=== PATIENT | male | born 1990 | race Caucasian/White ===

== ENCOUNTER 2021-01-07 10:58 | Day surgery (SDC) | payer BC, OTHER ==
[~2021-01-07 10:58] MED LIST: Lactated Ringers 1,000 ML IV SCH; Lidocaine 1%/Sod Bicarbonate in NS 8.4% 1 ML Syringe IDERM PRN; Sodium Chloride 0.9% 10 ML Syringe FLUSH PRN
--- NOTE | 2021-01-07 12:14 | PCM.PREANE ---
Preanesthetic Assessment - Procedure Proposed Procedure: Anal exam fistulectomy - Anesthesia/Transfusion/Family Hx Anesthesia History: Prior Anesthesia Without Reaction Family History of Anesthesia Reaction: No - Review of Systems General: No Symptoms Pulmonary: No Symptoms Cardiovascular: No Symptoms Gastrointestinal: Other (GERD, controlled. ) Neurological: No Symptoms Other: Reports: None (Obesity BMI 40), Sinus Problem (Sinus Surgery), Depression - Physical Assessment NPO Status Date: 01/07/21 NPO Status Time: 03:00 Vital Signs: Last Vital Signs Temp 36.4 C 01/07/21 11:31 Pulse 74 01/07/21 11:31 Resp 18 01/07/21 11:31 BP 115/70 01/07/21 11:31 Pulse Ox 96 01/07/21 11:31 Height: 1.83 m Weight: 136.4 kg ASA Class: 3 Mental Status: Alert & Oriented x3 Airway Class: Mallampati = 3 Dentition: Reports: Normal Dentition Thyro-Mental Finger Breadths: 3 Mouth Opening Finger Breadths: 3 ROM/Head Extension: Full Lungs: Clear to Auscultation, Normal Respiratory Effort Cardiovascular: Regular Rate, Regular Rhythm - Allergies Allergies/Adverse Reactions: Allergies Allergy/AdvReac Type Severity Reaction Status Date / Time No Known Allergies Allergy Verified 01/07/21 11:29 - Acknowledgements Anesthesia Type Planned: General Anesthesia Pt an Appropriate Candidate for the Planned Anesthesia: Yes Alternatives and Risks of Anesthesia Discussed w Pt/Guardian: Yes Pt/Guardian Understands and Agrees with Anesthesia Plan: Yes PreAnesthesia Questionnaire HEENT History: Reports: Sinusitis Gastrointestinal History: Reports: Colon Polyp, Other (See Below) Other Gastrointestinal History: colon polyp biopsy, anal fissures Psychiatric History: Reports: Depression - Infectious Disease History Infectious Disease History: Reports: None - Past Surgical History HEENT Surgical History: Reports: LASIK, Naso-Sinus Surgery, Visual GI Surgical History: Reports: Colonoscopy, EGD Musculoskeletal Surgical History: Reports: Arthroscopic Procedure Other Musculoskeletal Surgeries/Procedures:: right knee arthoscopy - SUBSTANCE USE Tobacco Use Status *Q: Current Every Day Tobacco User Tobacco Use Within Last Twelve Months: Snuff/Dip Recreational Drug Use History: No - HOME MEDS Home Medications: Home Meds FLUoxetine HCl [Prozac] 20 mg PO DAILY 01/07/21 [History] Lidocaine [Topicaine] 1 dose TOP ASDIRECTED PRN 01/07/21 [History] Mupirocin Oint [Bactroban Oint] 1 dose TOP ASDIRECTED PRN 01/07/21 [History] Nifedipine, Micronized [Nifedipine Micronized] 1 dose TOP ASDIRECTED 01/07/21 [History] OXcarbazepine [Trileptal] 150 mg PO BID 01/07/21 [History] buPROPion HCL [Wellbutrin Xl] 150 mg PO DAILY 01/07/21 [History] buPROPion HCL [Wellbutrin Xl] 300 mg PO DAILY 01/07/21 [History] - CURRENT (IN HOUSE) MEDS Current Meds: Current Medications Lactated Ringer's (Ringers, Lactated) 1,000 mls @ 125 mls/hr IV ASDIRECTED ALYSSA Stop: 01/07/21 23:00 Last Admin: 01/07/21 11:28 Dose: 125 mls/hr Documented by: Lidocaine/Sodium Bicarbonate (Buffered Lidocaine 1% In Ns 8.4%) 0.25 ml IDERM ONETIME PRN PRN Reason: Prior to IV Start Stop: 01/07/21 18:00 Last Admin: 01/07/21 11:28 Dose: 0.25 ml Documented by: Sodium Chloride (Saline Flush) 10 ml FLUSH ASDIRECTED PRN PRN Reason: Keep Vein Open Stop: 01/07/21 18:00
[2021-01-07] MEDS ORDERED: Lidocaine 1% with EPINEPHrine 1:100,000 10 ML MDV ONE ×2 (13:07→13:54)
[2021-01-07] MEDS ORDERED: Bupivacaine 0.5%/EPINEPHrine 1:200,000 50 ML MDV ONE (13:07)
[2021-01-07] MEDS ORDERED: Midazolam 1 MG/ML 2 ML SDV ONE (13:13)
[2021-01-07] MEDS ORDERED: Propofol 200 MG/20 ML SDV ONE (13:13)
[2021-01-07] MEDS ORDERED: fentaNYL 250 MCG/5 ML SDV ONE (13:13)
[2021-01-07] MEDS ORDERED: Lidocaine 1% 6 ML ONE (13:14)
[2021-01-07] MEDS ORDERED: Succinylcholine/Sod PF 100 MG/5 ML SYRINGE IV ONE (13:17)
[2021-01-07] MEDS ORDERED: Lactated Ringers 1,000 ML ONE (14:01)
[2021-01-07] MEDS ORDERED: Dexamethasone 4 MG/ML 5 ML MDV ONE (14:06)
[2021-01-07] MEDS ORDERED: Ondansetron 4 MG/2 ML SDV ONE (14:07)
[2021-01-07] MEDS ORDERED: HYDROmorphone 0.5 MG/0.5 ML Syringe IVPUSH PRN (14:35)
[2021-01-07] MEDS ORDERED: fentaNYL 100 MCG/2 ML SDV IVPUSH PRN (14:35)
--- NOTE | 2021-01-07 14:35 | PCM.POSTAN ---
POST ANESTHESIA ASSESSMENT - MENTAL STATUS Mental Status: Somnolent - VITAL SIGNS Vital Signs: Last Vital Signs Temp 97.5 F 01/07/21 14:27 Pulse 79 01/07/21 14:27 Resp 21 H 01/07/21 14:27 BP 89/48 L 01/07/21 14:27 Pulse Ox 91 L 01/07/21 14:27 - CARDIOVASCULAR CV Status: Pulse Rate WNL, Low Blood Pressure - GASTROINTESTINAL GI Status: No Symptoms - PAIN Pain Score: 0 - POST OP HYDRATION Hydration Status: Adequate & Stable
[2021-01-07] MEDS ORDERED: Acetaminophen 325 MG Tab PO PRN (15:37)
[2021-01-07] MEDS ORDERED: Ibuprofen 800 MG Tab PO PRN (15:37)
--- NOTE | 2021-01-07 16:19 | PCM48HPAN ---
Post Anesthesia Note - EVALUATION WITHIN 48HRS OF ANESTHETIC Vital Signs in Normal Range: Yes Patient Participated in Evaluation: Yes Respiratory Function Stable: Yes Airway Patent: Yes Cardiovascular Function Stable: Yes Hydration Status Stable: Yes Pain Control Satisfactory: Yes Nausea and Vomiting Control Satisfactory: Yes Mental Status Recovered: Yes Vital Signs: Last Vital Signs Temp 98.0 F 01/07/21 15:40 Pulse 76 01/07/21 15:40 Resp 16 01/07/21 15:40 BP 118/56 L 01/07/21 15:40 Pulse Ox 94 L 01/07/21 15:40 - COMMENTS/OBSERVATIONS Free Text/Narrative:: Patient is transferred to Medical Surgical room for extended floor recovery prior to home discharge
[2021-01-07 18:35] VITALS: BP 117/63; PULSE 85
--- NOTE | 2021-01-08 11:25 | OR ---
DATE OF OPERATION: 01/07/2021 SURGEON: Kumar Galeas MD PREOPERATIVE DIAGNOSIS: Perianal pain. POSTOPERATIVE DIAGNOSIS: 1. Perianal abscess. 2. Multiple tears around the anal canal. ESTIMATED BLOOD LOSS: 10 mL. ANESTHESIA: General anesthesia with local anesthetic consisting of a mixture of 1% lidocaine with epinephrine and 0.5% Marcaine with epinephrine. COMPLICATIONS: None. INDICATIONS AND CONSENT: Mr. Dickens is a 30-year-old male, who started having some perianal pain about a week ago. The pain really progressed over time and the patient was seen in walk- in clinic 2 days ago for this pain. He was suspected to have a perianal abscess and sent to my clinic. I evaluated the patient. He was very tender in the anterior portion of the perianal area, but there was no fluctuance at that point because the skin at that area appeared to be thickened with some fissures and openings concerning for fistula. Therefore, an exam under anesthesia was recommended and we discussed with the patient the risks, benefits, and alternatives, and informed consent was obtained. DESCRIPTION OF PROCEDURE: The patient was taken to the procedure room, placed in supine position, was padded appropriately, and general endotracheal anesthesia was induced. Time-out was performed and the patient's position was then modified into lithotomy. The perineum was prepped with Betadine and then the patient was draped appropriately. We began the procedure by doing a perianal exam. On the perianal exam and digital rectal exam, we noted that there was some thickened skin and some deep fluctuation in the anterior position in the perianal area. This was at 12 o'clock right next to the anal verge. Using Hill-Jett retractors, we noted that there was some skin thickening all around the anal verge with multiple areas of skin breaks that were not quite fissures, but there were multiple areas of skin breaks in the anal canal and thickened skin. Because of this finding, biopsies were taken in multiple areas in the perianal opening to be able to examine this area to see what was going on. The area of fluctuance was now examined. We used the lacrimal probe to see if there are any fistulas. There were no fistulas that were identified or open skin areas did not have any fistula. Therefore, we injected local anesthetic around the anus and while injecting the local anesthetic anteriorly at 12 o'clock, we were able to aspirate some thick pus. Therefore, we noted that there was an abscess at this site. A blade was used to open the area of fluctuation and copious amount of bloody purulent material was expressed. We sent swabs for microbiology from this area and the area was cleaned out very well and rinsed out with normal saline. There was a mild amount of oozing from the abscess pocket. The abscess pocket at this point then was packed with 0.5 inch iodoform gauze and the rest of the exam of the anal area appeared to be normal. The sphincter tone was normal and the rectal mucosa was normal. There were no significant hemorrhoids; therefore, based on this exam, the patient has perianal abscess that was drained as well as multiple areas of skin breakdown around the anal verge. Biopsies were taken. We will wait to see what the biopsies show. In the meantime, the patient will take the packed dressing out tomorrow and continue to care for the wound at home. The patient to follow up with me in clinic in 1 week for wound check. OPERATION PERFORMED: MMODAL /[id number] MTDCharito
== END 2021-01-07 19:45 | disposition home or self-care (01) ==
LOC: JD.SDS 10:58 → JD.MS 16:19 → JD.SDS 19:45
PROVIDERS: ATTEND Surgery
DX: K61.0 Anal abscess (principal); L83 Acanthosis nigricans; R23.4 Changes in skin texture; S31.831A Laceration without foreign body of anus, initial encounter; F17.220 Nicotine dependence, chewing tobacco, uncomplicated; Z98.890 Other specified postprocedural states
CPT/HCPCS: 46999; 87075; 87076; 87077; 87181; 87186; 87205; A9270; J0330; J1100; J1170; J2250; J2405; J2704; J3010; J3490; J7120; 00902

== ENCOUNTER 2021-09-20 17:02 | Emergency (ER) | payer BC ==
[2021-09-20 17:51] VITALS: BP 150/89; PULSE 88
[2021-09-20] MEDS ORDERED: FLU Vacc QS2021-22 36MOS UP/PF 60 MCG/0.5 ML Syringe IM ONE (18:15)
--- NOTE | 2021-09-20 18:20 | EDM.PDOCBH ---
ED HPI GENERAL MEDICAL PROBLEM - General Chief Complaint: Behavioral/Psych Stated Complaint: MENTAL HEALTH Time Seen by Provider: 09/20/21 17:48 Source of Information: Reports: Patient History Limitations: Reports: No Limitations - History of Present Illness INITIAL COMMENTS - FREE TEXT/NARRATIVE: 31-year-old male presents to the emergency department requesting hospitalization for depression. Patient has been seen by nurse practitioner Jazmyne Ledesma at [facility] in [place]. He states that approximately 6 weeks ago he had his depression medication dosages increased and he felt good for approximately a week however after that he began to experience significant depression. He states he does not feel like getting out of bed during the day. He sleeps as much as possible. He has not had any issues with insomnia. He states his appetite has been "all over the place". He states he does not currently have suicidal ideations however he has in the past. He states that approximately 1 year ago he did have a suicidal attempt. He states he has not been hospitalized for depression. Was speaking to his provider today and she states that he needed to be seen in the emergency department for work-up and inpatient hospitalization for depression. Patient states he is otherwise healthy. He does not smoke. He does not drink alcohol or take recreational drugs. - Related Data Allergies Allergy/AdvReac Type Severity Reaction Status Date / Time No Known Allergies Allergy Verified 09/20/21 17:45 Home Meds: Home Meds FLUoxetine HCl [Prozac] 20 mg PO DAILY 01/07/21 [History] Lidocaine [Topicaine] 1 dose TOP ASDIRECTED PRN 01/07/21 [History] Mupirocin Oint [Bactroban Oint] 1 dose TOP ASDIRECTED PRN 01/07/21 [History] Nifedipine, Micronized [Nifedipine Micronized] 1 dose TOP ASDIRECTED 01/07/21 [History] OXcarbazepine [Trileptal] 150 mg PO BID 01/07/21 [History] buPROPion HCL [Wellbutrin Xl] 150 mg PO DAILY 01/07/21 [History] buPROPion HCL [Wellbutrin Xl] 300 mg PO DAILY 01/07/21 [History] Past Medical History HEENT History: Reports: Sinusitis Gastrointestinal History: Reports: Colon Polyp, Other (See Below) Other Gastrointestinal History: colon polyp biopsy, anal fissures Psychiatric History: Reports: Depression - Infectious Disease History Infectious Disease History: Reports: None - Past Surgical History HEENT Surgical History: Reports: LASIK, Naso-Sinus Surgery, Visual Other HEENT Surgeries/Procedures: 08/2016 GI Surgical History: Reports: Colonoscopy, EGD Musculoskeletal Surgical History: Reports: Arthroscopic Procedure Other Musculoskeletal Surgeries/Procedures:: right knee arthoscopy Social & Family History - Family History Family Medical History: No Pertinent Family History - Tobacco Use Tobacco Use Status *Q: Never Tobacco User - Caffeine Use Caffeine Use: Reports: Coffee, Soda, Tea - Recreational Drug Use Recreational Drug Use: No - Living Situation & Occupation Living situation: Reports: , with Spouse, with Family Occupation: Employed ED ROS GENERAL - Review of Systems Review Of Systems: Comprehensive ROS is negative, except as noted in HPI. ED EXAM, BEHAVIORAL HEALTH - Physical Exam Exam: See Below Exam Limited By: No Limitations General Appearance: Alert, WD/WN, No Apparent Distress Ears: Normal External Exam, Hearing Grossly Normal Nose: Normal Inspection Throat/Mouth: Normal Inspection, Normal Lips, Normal Voice, No Airway Compromise Head: Atraumatic Neck: Normal Inspection, Supple Respiratory/Chest: No Respiratory Distress, Lungs Clear, Normal Breath Sounds, No Accessory Muscle Use, Chest Non-Tender Cardiovascular: Normal Peripheral Pulses, Regular Rate, Rhythm, No Edema, No Murmur GI/Abdominal: Normal Bowel Sounds, Soft, Non-Tender, No Distention (Male) Exam: Deferred Rectal (Males) Exam: Deferred Back Exam: Normal Inspection, Full Range of Motion Extremities: Normal Inspection Neurological: Alert, Normal Cognition, Oriented x 3. No: Normal Mood/Affect (She has a very flat affect) Psychiatric: Alert, Normal Cognition, Normal Mood, Oriented, Depressed Mood, Flat Affect. No: Homicidal Thoughts, Suicidal Thoughts Skin Exam: Warm, Dry, Intact, Normal color, No rash #1 Interpretation EKG Date: 09/20/21 Time: 18:49 Rhythm: NSR Rate (Beats/Min): 74 [place]: Normal P-Wave: Present QRS: Normal ST-T: Normal QT: Normal Comparison: NA - No Prior EKG EKG Interpretation Comments: Per Dr. Cooper interpretation: Sinus rhythm at 74 bpm; near Q wave V1 and Q- wave in [id number] old anteroseptal VA, right atrial hypertrophy; incomplete le ft bundle branch block COURSE, BEHAVIORAL HEALTH COMP - Course Vital Signs: Last Vital Signs Temp 97.6 F 09/20/21 17:45 Pulse 88 09/20/21 17:45 Resp 16 09/20/21 17:45 BP 150/89 H 09/20/21 17:45 Pulse Ox 97 09/20/21 17:45 Orders, Labs, Meds: Active Orders 24 hr Category Date Time Status Suicide Precautions [RC] .Per Facility Policy Care 09/20/21 17:54 Active Vaccine to be Administered/Admin Charge [RC] ASDIRECTED Care 09/20/21 17:52 Active Laboratory Tests 09/20/21 09/20/21 09/20/21 Range/Units 18:25 18:25 18:25 WBC 7.27 (4.23-9.07) K/mm3 RBC 5.47 (4.63-6.08) M/mm3 Hgb 15.2 (13.7-17.5) gm/dl Hct 45.7 (40.1-51.0) % MCV 83.5 (79.0-92.2) fl MCH 27.8 (25.7-32.2) pg MCHC 33.3 (32.2-35.5) g/dl RDW Std Deviation 40.9 (35.1-43.9) fL Plt Count 220 (163-337) K/mm3 MPV 11.0 (9.4-12.3) fl Neut % (Auto) 64.8 (34.0-67.9) % Lymph % (Auto) 20.1 L (21.8-53.1) % Spink % (Auto) 12.8 H (5.3-12.2) % Eos % (Auto) 1.8 (0.8-7.0) Baso % (Auto) 0.4 (0.1-1.2) % Neut # (Auto) 4.71 (1.78-5.38) K/mm3 Lymph # (Auto) 1.46 (1.32-3.57) K/mm3 Spink # (Auto) 0.93 H (0.30-0.82) K/mm3 Eos # (Auto) 0.13 (0.04-0.54) K/mm3 Baso # (Auto) 0.03 (0.01-0.08) K/mm3 Sodium 137 (136-145) mEq/L Potassium 4.0 (3.5-5.1) mEq/L Chloride 103 (98-107) mEq/L Carbon Dioxide 26 (21-32) mEq/L Anion Gap 12.0 (5-15) BUN 24 H (7-18) mg/dL Creatinine 1.0 (0.7-1.3) mg/dL Est Cr Clr Drug Dosing 118.56 mL/min Estimated GFR (MDRD) > 60 (>60) mL/min BUN/Creatinine Ratio 24.0 H (14-18) Glucose 92 (70-99) mg/dL Calcium 9.2 (8.5-10.1) mg/dL Magnesium 2.2 (1.8-2.4) mg/dL Total Bilirubin 0.2 (0.2-1.0) mg/dL AST 36 (15-37) U/L ALT 36 (16-63) U/L Alkaline Phosphatase 77 (46-116) U/L Total Protein 7.4 (6.4-8.2) g/dl Albumin 3.7 (3.4-5.0) g/dl Globulin 3.7 gm/dL Albumin/Globulin Ratio 1.0 (1-2) TSH 3rd Generation 2.581 (0.358-3.74) uIU/mL Salicylates 1.3 L (2.8-20) mg/dL Urine Opiates Screen (KQTGKP=169) Ur Buprenorphine Scrn (CUTOFF=10) Ur Oxycodone Screen (MNS8BS=659) Urine Methadone Screen (KIF0BI=459) Ur Propoxyphene Screen (OVYAOS=272) Acetaminophen 0 L (10-30) ug/mL Ur Barbiturates Screen (BHIMYH=594) Ur Tricyclics Screen (VOGBYJ=178) Ur Phencyclidine Scrn (CUTOFF=25) Ur Amphetamine Screen (FONSVE=989) U Methamphetamines Scrn (HRVZWM=882) U Benzodiazepines Scrn (CMFYAA=937) U Cocaine Metab Screen (PFUYHM=055) U Marijuana (THC) Screen (CUTOFF=50) Ethyl Alcohol 0.00 (0.00) gm% SARS-CoV-2 RNA (DRAKE) (NEGATIVE) 09/20/21 09/20/21 Range/Units 19:34 19:53 WBC (4.23-9.07) K/mm3 RBC (4.63-6.08) M/mm3 Hgb (13.7-17.5) gm/dl Hct (40.1-51.0) % MCV (79.0-92.2) fl MCH (25.7-32.2) pg MCHC (32.2-35.5) g/dl RDW Std Deviation (35.1-43.9) fL Plt Count (163-337) K/mm3 MPV (9.4-12.3) fl Neut % (Auto) (34.0-67.9) % Lymph % (Auto) (21.8-53.1) % Spink % (Auto) (5.3-12.2) % Eos % (Auto) (0.8-7.0) Baso % (Auto) (0.1-1.2) % Neut # (Auto) (1.78-5.38) K/mm3 Lymph # (Auto) (1.32-3.57) K/mm3 Spink # (Auto) (0.30-0.82) K/mm3 Eos # (Auto) (0.04-0.54) K/mm3 Baso # (Auto) (0.01-0.08) K/mm3 Sodium (136-145) mEq/L Potassium (3.5-5.1) mEq/L Chloride (98-107) mEq/L Carbon Dioxide (21-32) mEq/L Anion Gap (5-15) BUN (7-18) mg/dL Creatinine (0.7-1.3) mg/dL Est Cr Clr Drug Dosing mL/min Estimated GFR (MDRD) (>60) mL/min BUN/Creatinine Ratio (14-18) Glucose (70-99) mg/dL Calcium (8.5-10.1) mg/dL Magnesium (1.8-2.4) mg/dL Total Bilirubin (0.2-1.0) mg/dL AST (15-37) U/L ALT (16-63) U/L Alkaline Phosphatase (46-116) U/L Total Protein (6.4-8.2) g/dl Albumin (3.4-5.0) g/dl Globulin gm/dL Albumin/Globulin Ratio (1-2) TSH 3rd Generation (0.358-3.74) uIU/mL Salicylates (2.8-20) mg/dL Urine Opiates Screen Negative (IADTXR=281) Ur Buprenorphine Scrn Negative (CUTOFF=10) Ur Oxycodone Screen Negative (JCF7GZ=639) Urine Methadone Screen Negative (XAF7YG=757) Ur Propoxyphene Screen Negative (WTSGTD=812) Acetaminophen (10-30) ug/mL Ur Barbiturates Screen Negative (ICXCHO=949) Ur Tricyclics Screen Negative (EHZUJO=049) Ur Phencyclidine Scrn Negative (CUTOFF=25) Ur Amphetamine Screen Negative (JIJMPQ=577) U Methamphetamines Scrn Negative (HHKGCO=099) U Benzodiazepines Scrn Negative (WAERZC=969) U Cocaine Metab Screen Negative (WKXXKA=700) U Marijuana (THC) Screen Negative (CUTOFF=50) Ethyl Alcohol (0.00) gm% SARS-CoV-2 RNA (DRAKE) Negative (NEGATIVE) Medications Discontinued Medications Generic Name Dose Route Start Last Admin Trade Name Freq PRN Reason Stop Dose Admin Influenza Virus Vaccine 1 each 09/20/21 17:52 Pharmacy To Dose - Influenza Vaccine IM 09/20/21 17:53 ONETIME ONE Influenza Virus Vaccine 60 mcg 09/20/21 18:15 09/20/21 19:49 Flu Vacc [id number] 36mos Up/Pf 60 Mcg/0.5 Ml Syringe IM 09/20/21 18:16 60 mcg .ONCE ONE Administration Re-Assessment/Re-Exam: Hematology is essentially unremarkable, chemistry unremarkable, TSH 2.581 Toxicology reveals a salicylate level 1.3, acetaminophen level 0, ethyl alcohol 0, urine drug screen negative Patient is Covid negative I have phoned [facility] [address] [place] Ricci has accepted care of this patient. Patient's agrees to transport the patient to [facility] as a direct admit to room 799. All documentation will be faxed to the psychiatric floor at [facility]. Departure - Departure Time of Disposition: 21:18 Disposition: DC/Tfer to Psych Hosp/Unit 65 Condition: Good Clinical Impression: Depressive disorder - Discharge Information Referrals: PCP,Not In Area [Primary Care Provider] - Forms: ED Department Discharge Sepsis Event Note (ED) - Evaluation Sepsis Screening Result: No Definite Risk - Focused Exam Vital Signs: Vital Signs Temp Pulse Resp BP Pulse Ox 09/20/21 17:45 97.6 F 88 16 150/89 H 97 - My Orders Last 24 Hours: My Active Orders 09/20/21 17:52 Vaccine to be Administered/Admin Charge [RC] ASDIRECTED 09/20/21 17:54 Suicide Precautions [RC] .Per Facility Policy - Assessment/Plan Last 24 Hours: My Active Orders 09/20/21 17:52 Vaccine to be Administered/Admin Charge [RC] ASDIRECTED 09/20/21 17:54 Suicide Precautions [RC] .Per Facility Policy
[2021-09-20 19:09] LABS: ACETAMINOPHEN 0 ug/mL (10-30)
== END 2021-09-20 21:20 ==
LOC: JD.ED 17:02
DX: F32.A Depression, unspecified (principal); Z20.822 Contact with and (suspected) exposure to COVID-19; Z23 Encounter for immunization
CPT/HCPCS: 36415; 80053; 80143; 80179; 80306; 80307; 83735; 84443; 85025; 90686; 93005; 99285-25; G0008; U0002

== ENCOUNTER 2022-02-17 13:40 | Emergency (ER) | payer BC | END 2022-02-17 15:00 | disposition left against medical advice (07) | LOC: JD.ED 13:40 | DX: Z53.21 Procedure and treatment not carried out due to patient leaving prior to being seen by health care provider (principal) ==

== ENCOUNTER 2022-03-14 18:08 | Emergency (ER) | payer BC ==
[2022-03-14 18:27] VITALS: BP 134/61; PULSE 93
== END 2022-03-14 22:00 | disposition home or self-care (01) ==
LOC: JD.ED 18:08
DX: I82.612 Acute embolism and thrombosis of superficial veins of left upper extremity (principal); E66.9 Obesity, unspecified; Z28.310 Unvaccinated for COVID-19; Z86.16 Personal history of COVID-19; Z68.41 Body mass index [BMI] 40.0-44.9, adult
CPT/HCPCS: 36415; 85610; 85730; 93971-26-LT; 93971-LT; 99283; 99284-25

== ENCOUNTER 2023-02-26 10:57 | Day surgery (SDC) | payer OTHER ==
[~2023-02-26 10:57] MED LIST changes: +Sodium Chloride 0.9% 10 ML Syringe FLUSH SCH; +VANCOmycin 2 GM/400 ML 2 GM in Premix Bag 1 BAG IV SCH
[2023-02-26] MEDS ORDERED: Gabapentin 300 MG Cap PO SCH (11:00)
[2023-02-26] MEDS ORDERED: Acetaminophen 325 MG Tab PO SCH (11:00)
[2023-02-26] MEDS ORDERED: Ondansetron 4 MG/2 ML SDV IVPUSH PRN ×2 (11:13→14:06)
[2023-02-26] MEDS ORDERED: fentaNYL 100 MCG/2 ML SDV IVPUSH PRN ×2 (11:13→14:06)
[2023-02-26] MEDS ORDERED: HYDROmorphone 0.5 MG/0.5 ML Syringe IVPUSH PRN ×2 (11:13→14:06)
[2023-02-26] MEDS ORDERED: Bupivacaine 0.5%/EPINEPHrine 1:200,000 50 ML MDV ONE (11:30)
[2023-02-26] MEDS ORDERED: Lidocaine 1% with EPINEPHrine 1:100,000 20 ML MDV ONE (11:30)
[2023-02-26] MEDS ORDERED: Rocuronium 50 MG/5 ML Vial ONE ×2 (12:01→13:07)
[2023-02-26] MEDS ORDERED: Lidocaine 1% 2 ML ONE (12:01)
[2023-02-26] MEDS ORDERED: Ondansetron 4 MG/2 ML SDV ONE (12:01)
[2023-02-26] MEDS ORDERED: Propofol 200 MG/20 ML SDV ONE (12:02)
[2023-02-26] MEDS ORDERED: fentaNYL 100 MCG/2 ML SDV ONE (12:02)
[2023-02-26] MEDS ORDERED: Sugammadex Sodium 200 MG/2 ML VIAL ONE (13:37)
[2023-02-26] MEDS ORDERED: Ketorolac 30 MG/ML SDV ONE (13:37)
[2023-02-26 15:19] VITALS: PULSE 88
[2023-02-26 16:02] VITALS: BP 132/59
== END 2023-02-26 15:52 | disposition home or self-care (01) ==
LOC: JD.SDS 10:57
PROVIDERS: ATTEND Surgery
DX: K40.90 Unilateral inguinal hernia, without obstruction or gangrene, not specified as recurrent (principal); F32.A Depression, unspecified; R10.32 Left lower quadrant pain; E78.5 Hyperlipidemia, unspecified; E66.9 Obesity, unspecified; Z79.899 Other long term (current) drug therapy; Z68.41 Body mass index [BMI] 40.0-44.9, adult
CPT/HCPCS: 49320; A9270; J1885; J2405; J2704; J3010; J3490; J7120; C1727

== ENCOUNTER 2023-03-02 01:44 | Emergency (ER) | payer OTHER ==
[2023-03-02 01:58] VITALS: BP 140/65; PULSE 88
== END 2023-03-02 02:46 | disposition home or self-care (01) ==
LOC: JD.ED 01:44
DX: K61.0 Anal abscess (principal); E66.9 Obesity, unspecified; Z86.16 Personal history of COVID-19; Z68.41 Body mass index [BMI] 40.0-44.9, adult
CPT/HCPCS: 99283

== ENCOUNTER 2023-07-03 19:00 | Emergency (ER) | payer OTHER ==
[2023-07-03] MEDS ORDERED: Sodium Chloride 0.9% 10 ML Syringe FLUSH PRN (20:45)
[2023-07-03 22:09] LABS: BASOPHILS PERCENT AUTO 0.3 % (0.0-1.0); EOSINOPHILS ABSOLUTE AUTO 0.1 K/mm3 (0.0-0.4); EOSINOPHILS PERCENT AUTO 0.9 % (0.0-6.0); HEMATOCRIT 41.5 % (42.0-52.0); HEMOGLOBIN 13.7 gm/dl (14.0-18.0); IMMATURE GRAN ABSOLUTE AUTO 0.04 K/mm3 (0.00-0.05); IMMATURE GRAN PERCENT AUTO 0.3 % (0.0-0.4); LYMPHOCYTES ABSOLUTE AUTO 1.7 K/mm3 (1.0-4.8); LYMPHOCYTES PERCENT AUTO 14.2 % (24.0-44.0); MEAN CORPUSCULAR HEMOGLOBIN 27.4 pg (28.0-32.0); MEAN PLATELET VOLUME 10.8 fl (9.4-12.4); MONOCYTES ABSOLUTE AUTO 1.4 K/mm3 (0.0-0.8); MONOCYTES PERCENT AUTO 11.8 % (0.0-8.0); NEUTROPHILS ABSOLUTE AUTO 8.5 K/mm3 (1.8-7.7); NEUTROPHILS PERCENT AUTO 72.5 % (41.0-71.0); PLATELET COUNT,PLT 195 K/mm3 (150-400); WHITE BLOOD CELL COUNT,WBC 11.75 K/mm3 (3.9-11.3)
[2023-07-03] MEDS ORDERED: cefTRIAXone 2 GM in Sodium Chloride 0.9% 100 ML IV ONE (22:28)
[2023-07-03] MEDS ORDERED: Sulfamethoxazole/Trimethoprim 800-160 MG Tab PO ONE (22:29)
[2023-07-03] MEDS ORDERED: Apixaban 5 MG Tab PO ONE ×2 (22:29→22:42)
[2023-07-03 22:32] LABS: ALBUMIN 3.6 g/dl (3.4-5.0); ANION GAP 13.5 (5-15); BILIRUBIN TOTAL 0.5 mg/dL (0.2-1.0); BUN/CREATININE RATIO 13.1 (14-18); C-REACTIVE PROTEIN 8.1 mg/dL (<1.0); CALCIUM 9.3 mg/dL (8.5-10.1); CREATININE 1.3 mg/dL (0.7-1.3); EST CRCL DRUG DOSING (CG) 89.54 mL/min; POTASSIUM,K 3.5 mEq/L (3.5-5.1); PROTEIN TOTAL,TP 7.3 g/dl (6.4-8.2)
[2023-07-04 02:37] VITALS: BP 144/83; PULSE 94
== END 2023-07-03 23:27 | disposition home or self-care (01) ==
LOC: JD.ED 19:00
DX: I82.812 Embolism and thrombosis of superficial veins of left lower extremity (principal); L03.818 Cellulitis of other sites; E78.00 Pure hypercholesterolemia, unspecified; E66.9 Obesity, unspecified; Z79.01 Long term (current) use of anticoagulants; Z86.16 Personal history of COVID-19; Z68.41 Body mass index [BMI] 40.0-44.9, adult
CPT/HCPCS: 36415; 76705; 80053; 85025; 86140; 93971; 96365; 99284; A9270; J0696; J3490

== ENCOUNTER 2025-01-09 14:56 | Emergency (ER) | payer BC ==
[2025-01-09] MEDS: Diphtheria,Pertussis(Acell),Tetanus Vaccine 0.5 ML Syringe IM ONE (15:48)
[2025-01-09 15:53] VITALS: BP 142/79; PULSE 91
[2025-01-09] MEDS ORDERED: Lidocaine 1% 50 ML MDV INJECT STA (17:12)
[2025-01-09] MEDS: Lidocaine 1% 10 ML MDV ONE (17:55)
== END 2025-01-09 17:55 | disposition home or self-care (01) ==
LOC: JD.ED 14:56
DX: S50.852A Superficial foreign body of left forearm, initial encounter (principal); E78.00 Pure hypercholesterolemia, unspecified; E66.9 Obesity, unspecified; F17.210 Nicotine dependence, cigarettes, uncomplicated; Z68.33 Body mass index [BMI] 33.0-33.9, adult; Z86.16 Personal history of COVID-19; Z79.899 Other long term (current) drug therapy; W45.8XXA Other foreign body or object entering through skin, initial encounter; Z23 Encounter for immunization
CPT/HCPCS: 10120; 73090; 90471; 90715; 99283; J2003; 99284